=== PATIENT | female | born 1975 | race Two or more races ===

== ENCOUNTER 2018-05-21 01:20 | Inpatient (IN) | payer MEDICARE, MEDICAID ==
[~2018-05-21] VITALS: Ht 165.1 cm; Wt 58.7 kg
[2018-05-21] MEDS ORDERED: SODIUM CHLORIDE 0.9% 1,000 ML IV ONE (01:43)
[2018-05-21 02:47] LABS: BASOPHILS % 1.4 % (0.0-2.0); EOSINOPHILS % 1.8 % (0.0-5.0); HEMOGLOBIN. 14.1 g/dL (12.0-16.0); LYMPHOCYTES % 30.1 % (20.0-50.0); MEAN CORPUSCULAR HEMOGLOBIN 28.9 pg (28.0-32.0); MEAN CORPUSCULAR VOLUME 88.2 fL (81.0-99.0); MONOCYTES % 10.4 % (2.0-8.0); NEUTROPHILS % 56.3 % (40.0-76.0); PLATELET 280 x1000/uL (130-400); RED BLOOD CELL COUNT 4.88 mill/uL (4.2-5.4); RED CELL DISTRIBUTION WIDTH 14.6 % (11.6-14.6)
[2018-05-21 02:53] LABS: CLARITY URINE CLEAR (CLEAR); COLOR URINE YELLOW (YELLOW); HCG SCREEN NEGATIVE; KETONES URINE TRACE (NEGATIVE); LEUKOCYTE ESTERASE URINE NEGATIVE (NEGATIVE); NITRITE URINE NEGATIVE (NEGATIVE); OCCULT BLOOD URINE 2+ (NEGATIVE); PROTEIN URINE NEGATIVE (NEGATIVE); PROTHROMBIN TIME 10.1 sec (9.1-11.1); SPECIFIC GRAVITY URINE 1.028 (1.005-1.030); UROBILINOGEN URINE 0.2 E.U./dL (0.2-1.0)
[2018-05-21 02:55] LABS: CHLORIDE 108 mEq/L (98-107)
[2018-05-21 03:02] LABS: ETHANOL BLOOD < 10 mg/dL
[2018-05-21 03:12] LABS: *BARBITURATES SCREEN URINE NEGATIVE (NEGATIVE)
[2018-05-21 03:13] LABS: *BENZODIAZEPINES SCREEN URINE NEGATIVE (NEGATIVE); *COCAINE SCREEN URINE NEGATIVE (NEGATIVE); METHADONE URINE SCREEN NEGATIVE (NEGATIVE); OPIATES URINE SCREEN NEGATIVE (NEGATIVE)
[2018-05-21 03:14] LABS: *AMPHETAMINES SCREEN URINE PRESUMTIVE POSITIVE (NEGATIVE)
[2018-05-21 03:16] LABS: CANNABINOID URINE SCREEN PRESUMTIVE POSITIVE (NEGATIVE); PHENCYCLIDINE URINE SCREEN NEGATIVE (NEGATIVE)
[2018-05-21] MEDS ORDERED: MORPHINE SULFATE 4 MG/ML CPJ (NOT FOR IM USE) IV ONE (03:30)
[2018-05-21] MEDS ORDERED: PIPERACILLIN/TAZ 3.375G PREMIX 50 ML IV ONE (03:30)
[2018-05-21] MEDS ORDERED: ONDANSETRON HCL 4MG/2ML INJ IV ONE (03:30)
[2018-05-21] MEDS ORDERED: METRONIDAZOLE 500 MG PREMIX 100 ML IV ONE (03:30)
[2018-05-21] MEDS ORDERED: ACETAMINOPHEN 650MG SUPP PR PRN (12:00)
[2018-05-21] MEDS ORDERED: ACETAMINOPHEN 650MG/20.3ML UDC GT PRN (12:00)
[2018-05-21] MEDS ORDERED: DOCUSATE SODIUM 100MG CAPSULE PO PRN (12:00)
[2018-05-21] MEDS ORDERED: MAGNESIUM/ALUMINUM HYDROXIDE/SIMETHICONE 30ML UDC PO PRN (12:00)
[2018-05-21] MEDS ORDERED: NA PHOS,M-B/NA PHOS,DI-BA ENEMA 118ML PR PRN (12:00)
[2018-05-21] MEDS ORDERED: DIPHENHYDRAMINE 50MG/ML VIAL IV PRN (12:00)
[2018-05-21] MEDS ORDERED: IPRATROPIUM/ALBUTEROL 0.5-3(2.5)MG/3ML NEB INH PRN (12:00)
[2018-05-21] MEDS ORDERED: GUAIFENESIN 200MG/10ML SUGAR FREE UDC PO PRN (12:00)
[2018-05-21] MEDS ORDERED: CLONIDINE 0.1MG TABLET PO PRN (12:00)
[2018-05-21] MEDS ORDERED: ACETAMINOPHEN 325MG TABLET PO PRN (12:00)
[2018-05-21] MEDS ORDERED: ONDANSETRON HCL 4MG/2ML INJ IV PRN (12:00)
[2018-05-21 13:12] LABS: BASOPHILS % 0.6 % (0.0-2.0); EOSINOPHILS % 3.6 % (0.0-5.0); HEMATOCRIT. 37.9 % (36.0-48.0); HEMOGLOBIN. 12.4 g/dL (12.0-16.0); LYMPHOCYTES % 44.4 % (20.0-50.0); MEAN CORPUSCULAR HEMOGLOBIN 28.6 pg (28.0-32.0); MEAN CORPUSCULAR VOLUME 87.7 fL (81.0-99.0); MEAN PLATELET VOLUME 8.4 fl (7.4-10.4); MONOCYTES % 13.5 % (2.0-8.0); NEUTROPHILS % 37.9 % (40.0-76.0); PLATELET 249 x1000/uL (130-400); RED BLOOD CELL COUNT 4.33 mill/uL (4.2-5.4); RED CELL DISTRIBUTION WIDTH 14.5 % (11.6-14.6)
[2018-05-21 13:17] LABS: CHLORIDE 111 mEq/L (98-107)
[2018-05-21 13:21] LABS: AMYLASE 146 IU/L (25-115)
[2018-05-21] MEDS ORDERED: SODIUM CHLORIDE 0.9% INJ 3ML FLUSH IVF SCH (14:00)
[2018-05-21 22:00] VITALS: BP 125/80
[2018-05-21] MEDS ORDERED: DRON10CA PO (22:10)
[2018-05-21] MEDS ORDERED: SODIUM CHLORIDE 0.9% 1,000 ML IV SCH (22:15)
== END 2018-05-21 23:58 | disposition left against medical advice (07) | DRG 91 ==
LOC: ER 01:20 → EDBEDREQ 03:30 → EDBEDREQTM 03:30 → EDBEDREQSVC 03:30 → ENRESERV 20:14 → 6EST 21:35
PROVIDERS: ADMIT Family Medicine; ATTEND Family Medicine
DX: G92 Toxic encephalopathy (principal); E43 Unspecified severe protein-calorie malnutrition; F15.20 Other stimulant dependence, uncomplicated; E86.0 Dehydration; F17.210 Nicotine dependence, cigarettes, uncomplicated; J44.9 Chronic obstructive pulmonary disease, unspecified; Z85.118 Personal history of other malignant neoplasm of bronchus and lung; Z91.19 Patient's noncompliance with other medical treatment and regimen; Z53.21 Procedure and treatment not carried out due to patient leaving prior to being seen by health care provider; Z21 Asymptomatic human immunodeficiency virus [HIV] infection status; F12.20 Cannabis dependence, uncomplicated; Z59.0 Homelessness
CPT/HCPCS: 36415; 71045; 74176; 80305; 81025; 82150; 83605; 84145; 84484; 84703; 93005; 96365; 96368; 99285; J2543; J3490; J7030